=== PATIENT | male | born 1990 | race Caucasian/White ===

== ENCOUNTER 2018-08-25 04:50 | Emergency (ER) | payer MEDICAID ==
[~2018-08-25] VITALS: Ht 170.2 cm; Wt 72.6 kg
[2018-08-25 04:59] VITALS: BP 126/69
--- NOTE | 2018-08-25 04:59 | NUR ---
TO BED # 4 AMBULATORY, REPORT GIVEN TO DAKOTA PERAZA
--- NOTE | 2018-08-25 04:59 | NUR ---
Pt presents to ED with severe generalized body aches and GOODMAN pain 10/10 pain, c/o n/v, and non-oproductive cough. A&Ox4. Lungs clear throughout with 100 O2Sat at RA. VSS. Positioned in bed for comfort. ER MD aware. Continue to monitor.
[2018-08-25] MEDS ORDERED: KETOROLAC 60 MG/2 ML VIAL IM ONE (05:10)
[2018-08-25 05:26] VITALS: BP 126/69
--- NOTE | 2018-08-25 05:26 | NUR ---
Patient discharged with v/s stable. Written and verbal after care instructions given and explained. Patient alert, oriented and verbalized understanding of instructions. Ambulatory with steady gait. All questions addressed prior to discharge. ID band removed. Patient advised to follow up with PMD. Rx of Motrin, Tamiflu, and Zofran given. Patient educated on indication of medication including possible reaction and side effects. Opportunity to ask questions provided and answered.
== END 2018-08-25 05:26 | disposition home or self-care (01) ==
LOC: MED 04:50
DX: R05 Cough (principal); R11.2 Nausea with vomiting, unspecified; R50.9 Fever, unspecified; R07.9 Chest pain, unspecified; M79.10 Myalgia, unspecified site
CPT/HCPCS: 96372; 99283; J1885

== ENCOUNTER 2018-09-10 19:04 | Emergency (ER) | payer MEDICAID ==
[~2018-09-10] VITALS: Ht 170.2 cm; Wt 72.1 kg
[2018-09-10 19:11] VITALS: BP 122/61
--- NOTE | 2018-09-10 20:52 | NUR ---
Patient ambulated to bed 1. RN evaluating patient at bedside.
[2018-09-10] MEDS ORDERED: traMADol 50 MG TAB PO ONE (22:15)
--- NOTE | 2018-09-10 22:20 | NUR ---
KUSUM MAGUIRE APPLYING FINGER SPLINT TO PT AT THIS TIME.
[2018-09-10 22:27] VITALS: BP 122/61
--- NOTE | 2018-09-10 22:27 | NUR ---
Patient discharged with v/s stable. Written and verbal after care instructions given and explained. Patient alert, oriented and verbalized understanding of instructions. Ambulatory with steady gait. All questions addressed prior to discharge. ID band removed. Patient advised to follow up with PMD. Rx of TRAMADOL AND MOTRIN given. Patient educated on indication of medication including possible reaction and side effects. Opportunity to ask questions provided and answered. Addendum: 09/10/18 at 2230 by HOLLY PT STATES HIS GIRLFRIEND IS WAITING IN LOBBY TO GIVE HIM A RIDE HOME.
== END 2018-09-10 22:27 | disposition home or self-care (01) ==
LOC: MED 19:04
DX: S67.197A Crushing injury of left little finger, initial encounter (principal); W23.0XXA Caught, crushed, jammed, or pinched between moving objects, initial encounter; Y93.89 Activity, other specified; Y92.89 Other specified places as the place of occurrence of the external cause; Y99.8 Other external cause status
CPT/HCPCS: 73140; 99283